=== PATIENT | female | born 1970 | race Caucasian/White ===

== ENCOUNTER 2024-05-28 17:37 | Emergency (ER) | payer OTHER, SELFPAY ==
[2024-05-28 17:44] VITALS: BP 145/90; PULSE 70; RESP 16; TEMP 36.6; O2SAT 99
--- NOTE | 2024-05-28 17:45 | DI.RAD_ITS ---
Exam(s) XR WRIST LT COMPLETE EXAM: XR WRIST LT COMPLETE CLINICAL HISTORY: pain s/p fall. TECHNIQUE: 2D digital imaging was performed. COMPARISON: No exams were available for comparison FINDINGS: 3 views There is an acute mildly impacted and mildly dorsally angulated fracture of the distal radius which d oes not appear to obviously involve the articular surface of the radiocarpal joint. There is also a fracture of the tip of the ulnar styloid process. There is no significant ulnar variance. No carpal dislocation. Scaphoid and scapholunate distance appear unremarkable. IMPRESSION: Distal radius fracture and fracture of the ulnar styloid tip as described above DATA REPOSITORY: RADIATION DOSE DELIVERED:
--- NOTE | 2024-05-28 18:09 | ED.GENADUL_ITS ---
Discharge Plan Disposition Patient Disposition: Home Condition: Stable Discharge Details Clinical Impression: Fracture of left wrist Primary Care Provider: Xi,Local ED Provider: Dov Roberts Home Meds and New Rx's Prescriptions: New morphine 15 mg tablet 15 mg PO Q6H PRN (Reason: pain) Qty: 8 0RF Continued methylphenidate HCl [Concerta] 54 mg tablet extended release 24hr 54 mg PO DAILY lisinopril 5 mg tablet 5 mg PO DAILY insulin asp prt-insulin aspart [Novolog Mix 70-30 U-100 Insuln] 100 unit/mL (70-30) solution 1 sliding scale dose subcut USEASDIRECTD Discharge Instructions Additional Instructions: You have a broken bone in your wrist that is mildly displaced. Follow-up with orthopedics this week For pain you can take 1000 mg of acetaminophen and 600 mg of ibuprofen every 6 hours as needed. If you need additional pain relief you can take the morphine If you feel more ill or have severe worsening pain uncontrolled with your medication return to the emergency department for reevaluation HPI General Mode of arrival: ambulatory . Date/Time Provider Initiated Documentation: 05/28/24 17:38 . Limitations to Documentation: no limitations . Information obtained by: patient . History of Present Illness 54 year old F presents to the emergency department with the chief complaint of left wrist pain s/p fall , described as moderate, Quality is described as aching, and is localized to the left and upper extremity. Patient reports no radiation. Patient started experiencing this hour(s) (1) and it has been constant. Rest improves symptom(s), Movement worsens symptoms . Patient notes no other symptoms.. Patient did receive the following treatments prior to arrival, none Related Data Home Medications ?Medication ?Instructions ?Recorded ?Confirmed insulin aspar prt-insulin aspart 1 sliding scale dose subcut 05/28/24 05/28/24 100 unit/mL (70-30) subcutaneous USEASDIRECTD soln (Novolog Mix 70-30 U-100 Insuln) lisinopril 5 mg tablet 5 mg PO DAILY 05/28/24 05/28/24 methylphenidate HCl 54 mg 54 mg PO DAILY 05/28/24 05/28/24 tablet,extended release 24 hr (Concerta) morphine 15 mg immediate release 15 mg PO Q6H PRN pain #8 tabs 05/28/24 tablet Previous Rx's ?Medication ?Instructions ?Recorded morphine 15 mg immediate release 15 mg PO Q6H PRN pain #8 tabs 05/28/24 tablet Allergies Allergy/AdvReac Type Severity Reaction Status Date / Time sulfamethoxazole (From Allergy Severe Anaphylaxis Verified 05/28/24 17:46 Bactrim) trimethoprim (From Bactrim) Allergy Severe Anaphylaxis Verified 05/28/24 17:46 General Stated Complaint: Orthopedic ELIAS: 4 Review of Systems All systems reviewed & are unremarkable except as noted in HPI and below Constitutional Constitutional: Denies chills, Denies fever(s) and Denies weakness Cardiovascular Cardiovascular: Denies chest pain and Denies dyspnea Respiratory Respiratory: Denies cough and Denies dyspnea Gastrointestinal Gastrointestinal: Denies abdominal pain, Denies nausea and Denies vomiting Integumentary/Breasts Skin/Breast: Denies rash Neurologic Neurologic: Denies weakness Exam Const General: no acute distress Orientation: alert [facility] Head: normal to inspection Ears: external ears normal General nose exam: external nose normal Mouth: moist mucous membranes Eyes General: appearance normal, both eyes and all related structures Neck Neck: normal visual inspection Resp Effort & Inspection: normal respiratory effort and able to speak in complete sentences Cardio Rate: regular rate Skin General skin exam: no rashes or lesions noted Neuro General: patient alert and patient oriented x3 Extrem General: capillary refill normal Psych Mental Status: mental status grossly normal Course Vital Signs Vital signs: Vital Signs Temperature 36.6 C 05/28/24 17:44 Pulse 70 05/28/24 17:44 Respiratory Rate 16 05/28/24 17:44 Blood Pressure 145/90 H 05/28/24 17:44 Pulse Oximetry 99 05/28/24 17:44 Temperature 36.6 C 05/28/24 17:44 Temperature Source Oral 05/28/24 17:44 Pulse 70 05/28/24 17:44 Respiratory Rate 16 05/28/24 17:44 Blood Pressure 145/90 H 05/28/24 17:44 Blood Pressure Position Sitting 05/28/24 17:44 Pulse Oximetry 99 05/28/24 17:44 Oxygen Delivery Method Room Air 05/28/24 17:44 Oxygen Flow Rate 0 05/28/24 17:44 Comment 8 05/28/24 17:44 Medical Decision Making 54-year-old female comes in with a left wrist injury. She says she was walking when she slipped and landed on her left wrist. Did not hit her head or loss of consciousness. She only has pain in the left wrist. She denies any headache, neck pain, back pain, chest or abdomen pain. She has tenderness and swelling of the left wrist, tender over the posterior, anterior lateral and medial portions. She has no tenderness in the hand with intact distal cap refill and pulses in the wrist. I suspect a fracture will obtain x-rays. She has no tenderness in the elbow or wrist in the arm so do not feel other x-rays indicated. X-ray shows a mildly impacted and mildly displaced dorsally distal radius and ulnar styloid fracture. Patient is stable and has no new pain elsewhere. We do not have orthopedics on-call, I offered to attempt a reduction either with or without sedation and trying a hematoma block. Discussed the risk benefits of this and discussed that even if the alignment improved she may end up requiring surgery regardless, she declines to have attempted reduction currently. I will place in a wrist splint, she is not from here, states she is going to be in the [place] area for the next several weeks so she will reach out to orthopedics in that area. Return precautions given Differential Diagnosis Differential Diagnosis: Fracture, contusion Imaging Data Radiologic Study: Attestation: I personally reviewed and interpreted this imaging study as follows: Imaging: X-Ray Radiologist's impression: IMPRESSION: Distal radius fracture and fracture of the ulnar styloid tip as described above Quality:SDOH Health Related Social Needs: No Data to Display PFSH All Active Problems (Updated 05/28/24 @ 18:35 by Dov Roberts MD) Fracture of left wrist (Acute) Social History Smoking/Tobacco Use Status: Never Smoking risk assessment performed?: Yes Alcohol Intake: never Drug use: Never Substance use type: does not use Housing: house Do you feel safe at home: Yes Do you feel safe in your relationship?: Yes
[2024-05-28] MEDS: Ibuprofen 600 MG TAB PO (18:15)
[2024-05-28] MEDS: MORPHine IR 15 MG TAB, 4 TABS/BTL PO (18:53)
== END 2024-05-28 18:58 | disposition home or self-care (01) ==
PROVIDERS: Emergency Provider Emergency Medicine
DX: S52.612A Displaced fracture of left ulna styloid process, initial encounter for closed fracture; W19.XXXA Unspecified fall, initial encounter; Y92.838 Other recreation area as the place of occurrence of the external cause
CPT/HCPCS: 99283; 73110; 99284